=== PATIENT | female | born 1940 | race Caucasian/White ===

== ENCOUNTER 2018-05-07 08:56 | Day surgery (SDC) | payer MEDICARE ==
[~2018-05-07] VITALS: Ht 157.5 cm; Wt 61.3 kg
[2018-05-07] VITALS (7 sets, daily range): BP systolic 110–141; BP diastolic 46–59
[~2018-05-07 08:56] MED LIST: ASCO10007 PO; ASPI-611 PO; GLUC-131 PO; IBUP-24 PO; LIDOcaine 1% 30ml preserv. free vial SQ STA; MULT-342 PO; SIMV40TA4 PO; VALS1TAB4 PO; [UNRECOGNIZED DRUG - CODE] PO
[2018-05-07] MEDS ORDERED: LEVO100T PO (10:04)
[2018-05-07] MEDS ORDERED: ALB0.5UD IH (10:04)
[2018-05-07] MEDS ORDERED: ONDA8TAB12 PO (10:04)
[2018-05-07] MEDS ORDERED: HYDR-4383 PO (10:04)
== END 2018-05-07 11:00 | disposition home or self-care (01) ==
LOC: SSTAY O 08:56
PROVIDERS: ATTEND Radiology Vascular & Interventional Radiology
DX: J90 Pleural effusion, not elsewhere classified (principal); I10 Essential (primary) hypertension; E78.5 Hyperlipidemia, unspecified; Z87.891 Personal history of nicotine dependence; Z85.9 Personal history of malignant neoplasm, unspecified; Z79.899 Other long term (current) drug therapy; Z88.8 Allergy status to other drugs, medicaments and biological substances; Z79.82 Long term (current) use of aspirin
CPT/HCPCS: 32555; 71045; J3490